=== PATIENT | male | born 1965 | race Caucasian/White ===

== ENCOUNTER 2025-02-26 20:37 | Observation (INO) | payer MEDICARE ==
--- NOTE | 2025-02-26 21:02 | ED ---
Chest Pain HPI - General Chief Complaint: Chest Pain Stated Complaint: Chest pain Time Seen by Provider: 02/26/25 20:38 Source: patient, EMS, RN notes reviewed, old records reviewed Mode of arrival: EMS Limitations: no limitations - History of Present Illness Initial Comments: This is a 59-year-old male to the ER. He comes in today for evaluation of an exacerbation of chronic symptoms vertiginous symptoms with near syncope migraine headaches, patient states that he has a formal diagnosis of migraine induced vertigo but coming in today with chest pain today. Patient states that he does feel like his heart was racing prior to arrival and began to help have chest pain left side of his chest heaviness on his chest which is persistent currently. He does feel short of breath which is improving with no recent recent illness no nausea vomiting or diarrhea no fevers. MD Complaint: chest pain, other (Vertigo dizziness nausea) -: hour(s) Onset: during rest Pain Location: substernal, left chest Pain Radiation: LUE Severity: moderate Severity scale (1-10): 4 Quality: tightness Consistency: constant Improves With: nothing Worsens With: nothing Anginal Symptoms: nausea Other Symptoms: palpitations Treatments Prior to Arrival: none - Related Data Allergies Allergy/AdvReac Type Severity Reaction Status Date / Time No Known Allergies Allergy Verified 02/26/25 20:44 Review of Systems ROS Statement: Those systems with pertinent positive or pertinent negative responses have been documented in the HPI. ROS Other: All systems not noted in ROS Statement are negative. EKG Findings - EKG Comments: EKG Findings:: EKG sinus 62 ID 166 QRS 114 QTc 428, every other beat PVC - EKG Results: EKG: interpreted by ANJEL Past Medical History Past Medical History: Asthma, GERD/Reflux, Hypertension, Mitral Valve Prolapse (MVP) Additional Past Medical History / Comment(s): vestibular headaches History of Any Multi-Drug Resistant Organisms: None Reported Past Surgical History: Orthopedic Surgery Additional Past Surgical History / Comment(s): left knee, bilateral wrist surgery Past Psychological History: Anxiety, Depression Smoking Status: Never smoker Past Alcohol Use History: None Reported Past Drug Use History: None Reported General Exam General appearance: alert, in no apparent distress Head exam: Present: atraumatic, normocephalic, normal inspection Eye exam: Present: normal appearance, PERRL, EOMI. Absent: scleral icterus, conjunctival injection, periorbital swelling ENT exam: Present: normal exam, mucous membranes moist Neck exam: Present: normal inspection. Absent: tenderness, meningismus, lymphadenopathy Respiratory exam: Present: normal lung sounds bilaterally. Absent: respiratory distress, wheezes, rales, rhonchi, stridor Cardiovascular Exam: Present: regular rate, normal rhythm, normal heart sounds. Absent: systolic murmur, diastolic murmur, rubs, gallop, clicks GI/Abdominal exam: Present: soft, normal bowel sounds. Absent: distended, tenderness, guarding, rebound, rigid Extremities exam: Present: normal inspection, full ROM, normal capillary refill. Absent: tenderness, pedal edema, joint swelling, calf tenderness Back exam: Present: normal inspection Neurological exam: Present: alert, oriented X3, CN II-XII intact Psychiatric exam: Present: normal affect, normal mood Skin exam: Present: warm, dry, intact, normal color. Absent: rash Course Vital Signs 02/26/25 20:38 Temperature 98.7 F Pulse Rate 61 Respiratory 18 Rate Blood Pressure 168/101 O2 Sat by Pulse 95 Oximetry - Reevaluation(s) Reevaluation #1: 02/26/25 22:31 Medical records reviewed Reevaluation #2: 02/26/25 22:31 Patient still remains with chest pain here in the ER Reevaluation #3: 02/26/25 22:31 Patient informed of results questions answered Reevaluation #4: Was pt. sent in by a medical professional or institution (, PA, SERVICE UNIT OPERATOR [employer], urgent care, hospital, or senior care...) When possible be specific @ -no Did you speak to anyone other than the patient for history (EMS, parent, family, police, friend...)? What history was obtained from this source @ -no Did you review nursing and triage notes (agree or disagree)? Why? @ -agree Are old charts reviewed (outside hosp., previous admission, EMS record, old EKG, old radiological studies, urgent care reports/EKG's, senior care records)? Report findings @ -yes Differential Diagnosis (chest pain, altered mental status, abdominal pain women, abdominal pain men, vaginal bleeding, weakness, fever, dyspnea, syncope, headache, dizziness, GI bleed, back pain, seizure, CVA, palpatations, mental health, musculoskeletal)? @ -prior EKG interpreted by me (3pts min.). @ -yes X-rays interpreted by me (1pt min.). @ -yes negative for acute disease CT interpreted by me (1pt min.). @ -no U/S interpreted by me (1pt. min.). @ -no What testing was considered but not performed or refused? (CT, X-rays, U/S, labs)? Why? @ -none What meds were considered but not given or refused? Why? @ -none Did you discuss the management of the patient with other professionals (professionals i.e. , PA, SERVICE UNIT OPERATOR [employer], lab, RT, psych nurse, social media specialist, it support engineer, teacher, division officer weapons department, director case)? Give summary @ -no Was smoking cessation discussed for >3mins.? @ -no Was critical care preformed (if so, how long)? @ -no Were there social determinants of health that impacted care today? How? (Homelessness, low income, unemployed, alcoholism, drug addiction, transpo rtation, low edu. Level, literacy, decrease access to med. care, [facility], rehab)? @ -none Was there de-escalation of care discussed even if they declined (Discuss DNR or withdrawal of care, Hospice)? DNR status @ -no What co-morbidities impacted this encounter? (DM, HTN, Smoking, COPD, CAD, Cancer, CVA, ARF, Chemo, Hep., AIDS, mental health diagnosis, sleep apnea, morbid obesity)? @ -none Was patient admitted / discharged? Hospital course, mention meds given and route, prescriptions, significant lab abnormalities, going to OR and other pertinent info. @ - Undiagnosed new problem with uncertain prognosis? @ -no Drug Therapy requiring intensive monitoring for toxicity (Heparin, Nitro, Insulin, Cardizem)? @ -no Were any procedures done? @ -no Diagnosis/symptom? @ - Acute, or Chronic, or Acute on Chronic? @ -Acute Uncomplicated (without systemic symptoms) or Complicated (systemic symptoms)? @ -Complicated Side effects of treatment? @ -no Exacerbation, Progression, or Severe Exacerbation? @ -exacerbation Poses a threat to life or bodily function? How? (Chest pain, USA, NV, pneumonia, PE, COPD, DKA, ARF, appy, cholecystitis, CVA, Diverticulitis, Homicidal, Suicidal, threat to staff... and all critical care pts) @ -yes Reevaluation #5: Differential Chest Pain: Stable Angina, Unstable Angina, STEMI, NSTEMI Aortic Dissection, Pneumothorax, Musculoskeletal, Esophageal Spasm GERD, Cholecystitis, Pancreatitis, Zoster, this is not meant to be an all-inclusive list. Differential Palpitations Ventricular arrhythmias, atrial arrhythmias, myocardial infarction, anemia, thyrotoxicosis, electrolyte imbalance, hypokalemia, pulmonary embolism, pulmonary disease, drugs, alcohol, anxiety, stress.... This is not meant to be an all-inclusive list. - Consultations Consultation #1: Spoke with [facility] who agrees to admit this patient Chest Pain MDM - MDM 59 male to the ER for evaluation of chest pain and palpitations elevated heart rate prior to arrival multiple PVCs here in the ER troponin negative EKG appears unremarkable will admit for chest pain observation as he still is having persistent chest pain and heaviness today Disposition Clinical Impression: Chest pain Disposition: ADMITTED IP TO THIS HOSP Condition: Fair Is patient prescribed a controlled substance at d/c from ED?: No Referrals: Jaime Herrera DO [Primary Care Provider] - 1-2 days Time of Disposition: 22:30
[2025-02-26] MEDS: SODIUM CHLORIDE 0.9% 1,000 ML IV STA (21:13)
[2025-02-26] MEDS: ONDANSETRON 4 MG/2 ML VIAL IVP STA (21:15)
[2025-02-26 21:18] LABS: Basophils # (A) 0.1 k/uL (0-0.2); Basophils % (A) 1 %; Eosinophils # (A) 0.1 k/uL (0-0.7); Eosinophils % (A) 2 %; HCT 48.2 % (39.0-53.0); HGB 15.6 gm/dL (13.0-17.5); Lymphocytes # (A) 1.9 k/uL (1.0-4.8); Lymphocytes % (A) 27 %; MCH 27.3 pg (25.0-35.0); MCHC 32.4 g/dL (31.0-37.0); MCV 84.4 fL (80.0-100.0); Mean Platelet Volume 8.5; Monocytes # (A) 0.5 k/uL (0-1.0); Monocytes % (A) 7 %; Neutrophils # (A) 4.3 k/uL (1.3-7.7); Neutrophils % (A) 61 %; Platelet Count 288 k/uL (150-450); RBC 5.71 m/uL (4.30-5.90); RDW 13.4 % (11.5-15.5)
[2025-02-26 21:28] LABS: ALT 52 U/L (4-49); AST 50 U/L (17-59); African American GFR (CKD) >90 (>60 ml/min/1.73 sqM); Albumin 4.4 g/dL (3.5-5.0); Alkaline Phosphatase 92 U/L (38-126); Anion Gap 9 mmol/L; Blood Urea Nitrogen 18 mg/dL (9-20); Calcium 9.7 mg/dL (8.4-10.2); Carbon Dioxide 22 mmol/L (22-30); Chloride 107 mmol/L (98-107); Glucose 103 mg/dL (74-99); Lipase 61 U/L (23-300); Magnesium 1.9 mg/dL (1.6-2.3); Non-African American GFR(CKD) >90 (>60 ml/min/1.73 sqM); Potassium 3.7 mmol/L (3.5-5.1); Sodium 138 mmol/L (137-145); Total Bilirubin 0.8 mg/dL (0.2-1.3); Total Protein 6.8 g/dL (6.3-8.2)
[2025-02-26 21:29] LABS: Prothrombin Time 11.1 sec (10.0-12.5)
--- NOTE | 2025-02-26 21:29 | XR ---
EXAMINATION TYPE: XR chest 1V portable DATE OF EXAM: 02/26/2025 9:20 PM COMPARISON: None. CLINICAL INDICATION: Male, 59 years old with history of chest pain, TECHNIQUE: XR chest 1V portable view(s) obtained. FINDINGS: The heart size is normal. The pulmonary vasculature is normal. There is a left upper lobe infiltrate. Correlate for pneumonia or atelectasis. This area corresponds approximately 3.7 x 2.5 cm Follow-up to clearing is recommended. IMPRESSION: 1. Small left upper lobe infiltrate. Correlate for atelectasis or pneumonia. Follow-up for underlying mass is recommended. [facility], , 02/26/2025 9:27 PM
[2025-02-26 21:36] LABS: NT-Pro-B-Type Natriuretic Pept 56 pg/mL
[2025-02-26] MEDS ORDERED: NITROGLYCERIN SL TABS 0.4 MG TAB SUBLINGUAL PRN (22:27)
[2025-02-26] MEDS ORDERED: MORPHINE SULFATE 4 MG/ML SYRINGE IV PRN (22:27)
[2025-02-26] MEDS: ASPIRIN 81 MG PO STA (22:51)
[2025-02-26] MEDS ORDERED: NAPROXEN 250 MG TAB PO PRN (23:30)
[2025-02-26] MEDS ORDERED: ACETAMINOPHEN TAB 325 MG TAB PO PRN (23:31)
--- NOTE | 2025-02-26 23:48 | P.HPIM ---
History of Present Illness H&P Date: 02/26/25 Chief Complaint: chest pain Patient is a 59-year-old male with hypertension, asthma presenting with chest pain. Patient has formal diagnosis of migraine induced vertigo follows up with this at [facility]. States this morning he was feeling dizzy and felt his migraine coming on along with light sensitivity. He went to lie down and he started to notice that his heart was racing so much to the point it was causing his chest to hurt. From that point he started to get anxious and stated that he blacked out. After that his family called 911. He describes the pain as a constant chest tightness with no radiation and no alleviating/aggravating factors. Patient said he felt a bit nauseous as well. Denies any vomiting denies or diaphoresis. He is a never smoker, does not drink alcohol, or do any illicit substances. He also states that he quit taking his antihypertensive medication back in October because it made him feel lightheaded. Patient states he is going to follow-up with his PCP regarding new medication. Patient admits to heart palpitations, headache. Patient denies fever, chills, shortness of breath, abdominal pain, vomiting, diarrhea, urinary symptoms. EKG independently interpreted dispelling sinus rhythm, incomplete RBBB, rate 62 bpm, QTc 420 CXR independent interpreted displaying small left upper lobe infiltrate T 98.7 F, HR 61, RR 18, BP 160/101, O2 saturation 95% room air Review of systems: Pertinent positives and negatives as discussed in HPI, a complete review of systems was performed and all other systems are negative. Physical examination: Vital signs reviewed General: non toxic, no distress, appears at stated age, obese Derm: no unusual rashes/lesions, warm Head: atraumatic, normocephalic, symmetric Eyes: EOMI, anicteric sclera, pupils equal round reactive to light ENT: Nose and ears atraumatic Mouth: no lip lesion, mucus membranes moist Cardiovascular: S1S2 reg, no murmur, positive dorsalis pedis pulse bilateral, 1+ pitting edema LLE Lungs: CTA bilateral, no rhonchi, no rales, no accessory muscle use Abdominal: soft, nontender to palpation, no guarding Ext: muscle strength 5 out of 5 in all 4 extremities grossly, no gross muscle atrophy Neuro: CN II-XI grossly intact, no gross focal neuro deficits Psych: Alert, oriented to person, place, and time Assessment/Plan: Patient is a 59-year-old male with hypertension, asthma presenting with chest pain. Discussed with the patient. ED documentation reviewed. The patient is admitted with an anticipated less than 2 midnight stay for evaluation of acute chest pain. #. Acute chest pain Rule out ACS Troponin <0.012, continue to trend proBNP 56 EKG independently interpreted dispelling sinus rhythm, incomplete RBBB, rate 62 bpm, QTc 420 CXR independent interpreted displaying small left upper lobe infiltrate Aspirin 81 mg p.o. daily Atorvastatin 80 mg p.o. daily Lopressor 25 mg p.o. twice daily Sublingual nitroglycerin as needed TSH, A1c, lipid panel ordered Cardiac telemetry Cardiology consulted #. Left lower extremity edema Left lower extremity edema > right side Patient states he has had that for a while, stopped taking his diuretic Bilateral lower extremity Doppler ordered #. History of migraine #. History of vertigo secondary to migraine S/p 5 mg IVP Naproxen 500 mg PO 3 TID #. Obstructive sleep apnea on CPAP Use home CPAP #. History of asthma, not in acute exacerbation Albuterol inhaler as needed DVT prophylaxis: SCDs, patient declined pharmacologic DVT PPX CODE STATUS: Full code Anticipated discharge place: Pending clinical course Avinash Flower MD PGY-1 IM Dictation was produced using [employer] dictation software. please excuse any grammatical, word or spelling errors. I have seen and evaluated the patient today. I Discussed the case with the resident and agree with the resident's findings I edited the assessment and plan as necessary as documented in the resident's note. Past Medical History Past Medical History: Asthma, GERD/Reflux, Hypertension, Mitral Valve Prolapse (MVP) Additional Past Medical History / Comment(s): vestibular headaches History of Any Multi-Drug Resistant Organisms: None Reported Past Surgical History: Orthopedic Surgery Additional Past Surgical History / Comment(s): left knee, bilateral wrist surgery Past Psychological History: Anxiety, Depression Smoking Status: Never smoker Past Alcohol Use History: None Reported Past Drug Use History: None Reported Medications and Allergies Allergies Allergy/AdvReac Type Severity Reaction Status Date / Time heparin AdvReac Unknown Verified 02/26/25 22:58 nortriptyline AdvReac Unknown Verified 02/26/25 22:57 Physical Exam Vitals: Vital Signs Temp Pulse Resp BP Pulse Ox 02/26/25 20:38 98.7 F 61 18 168/101 95 Intake and Output 02/26/25 02/26/25 02/26/25 06:59 14:59 22:59 Other: Weight 120.202 kg Results CBC & Chem 7: 02/26/25 21:08 02/26/25 21:08 Labs: Abnormal Lab Results - Last 24 Hours (Table) 02/26/25 Range/Units 21:08 Glucose 103 H (74-99) mg/dL ALT 52 H (4-49) U/L
[2025-02-26] MEDS ORDERED: ALBUTEROL NEBULIZED 2.5 MG/3 ML INHALATION PRN (23:49)
[2025-02-27 02:41] LABS: Basophils # (A) 0.1 k/uL (0-0.2); Basophils % (A) 1 %; Eosinophils # (A) 0.2 k/uL (0-0.7); Eosinophils % (A) 3 %; HCT 46.7 % (39.0-53.0); HGB 14.9 gm/dL (13.0-17.5); Lymphocytes # (A) 2.3 k/uL (1.0-4.8); Lymphocytes % (A) 32 %; MCH 27.3 pg (25.0-35.0); MCV 85.2 fL (80.0-100.0); Mean Platelet Volume 8.2; Monocytes # (A) 0.6 k/uL (0-1.0); Monocytes % (A) 9 %; Neutrophils # (A) 3.8 k/uL (1.3-7.7); Neutrophils % (A) 53 %; Platelet Count 261 k/uL (150-450); RBC 5.48 m/uL (4.30-5.90); RDW 13.3 % (11.5-15.5); WBC 7.1 k/uL (3.8-10.6)
[2025-02-27 03:06] LABS: ALT 47 U/L (4-49); AST 31 U/L (17-59); African American GFR (CKD) >90 (>60 ml/min/1.73 sqM); Albumin 3.9 g/dL (3.5-5.0); Albumin/Globulin Ratio 1.8; Alkaline Phosphatase 74 U/L (38-126); Anion Gap 7 mmol/L; Blood Urea Nitrogen 19 mg/dL (9-20); Calcium 9.5 mg/dL (8.4-10.2); Carbon Dioxide 24 mmol/L (22-30); Chloride 107 mmol/L (98-107); Globulin 2.2 g/dL; Glucose 93 mg/dL (74-99); Non-African American GFR(CKD) >90 (>60 ml/min/1.73 sqM); Potassium 3.8 mmol/L (3.5-5.1); Sodium 138 mmol/L (137-145); Total Bilirubin 0.8 mg/dL (0.2-1.3); Total Protein 6.1 g/dL (6.3-8.2)
--- NOTE | 2025-02-27 08:08 | US ---
EXAMINATION TYPE: US venous doppler duplex LE BI DATE OF EXAM: 02/27/2025 7:01 AM COMPARISON: NONE CLINICAL INDICATION: Male, 59 years old with history of swelling; , Pain TECHNIQUE: The lower extremity deep venous system is examined utilizing real time linear array sonog mauro with graded compression, color doppler sonography, and spectral doppler. SIDE PERFORMED: Bilateral FINDINGS: VESSELS IMAGED: Common Femoral Vein Deep Femoral Vein Greater Saphenous Vein * Femoral Vein Popliteal Vein Small Saphenous Vein * Proximal Calf Veins (* superficial vessels) Right Leg: Negative for DVT, Color Doppler imaging shows patency of the vessels. Spectral waveforms are within normal limits. Left Leg: Negative for DVT, Color Doppler imaging shows patency of the vessels. Spectral waveforms a re within normal limits. IMPRESSION: 1. Bilateral lower extremity ultrasound negative for deep venous thrombosis. [facility], , 02/27/2025 8:05 AM
[2025-02-27] MEDS ORDERED: ALBUTEROL SULFATE 90 MCG INHALATION PRN (08:55)
[2025-02-27] MEDS ORDERED: diazePAM 2 MG TAB PO PRN (08:55)
[2025-02-27] MEDS ORDERED: ASPIRIN 325 MG TAB PO SCH (09:00)
[2025-02-27] MEDS ORDERED: NON FORMULARY DRUG (Riboflavin (Vitamin B2) [Vitamin B-2] 100 MG Tablet) PO SCH (09:00)
[2025-02-27] MEDS: METOPROLOL TARTRATE 25 MG TAB PO SCH (09:48)
[2025-02-27] MEDS: ASPIRIN 81 MG PO SCH (09:48)
[2025-02-27] MEDS: MONTELUKAST 10 MG TAB PO SCH (09:48)
[2025-02-27] MEDS: ATORVASTATIN 80 MG TAB PO SCH (09:48)
[2025-02-27] MEDS: FAMOTIDINE 20 MG TAB PO SCH (09:48)
[2025-02-27] MEDS: PANTOPRAZOLE 40 MG TABLET PO SCH (09:48)
[2025-02-27] MEDS: FOLIC ACID 1 MG TAB PO SCH (09:49)
[2025-02-27] MEDS ORDERED: SYMBICORT 80-4.5 MCG INHALER INHALATION SCH (10:00)
[2025-02-27 11:47] LABS: Chol/HDL Ratio 4.35 Ratio; LDL Cholesterol,Calculated 141.4 mg/dL (0.0-131.0)
[2025-02-27] MEDS: FLUTICASONE NASAL 50MCG/SPRAY 16GM BTL EA NOSTRIL SCH (12:11)
[2025-02-27] MEDS ORDERED: RX INFO: IV CONTRAST WAS GIVEN 1 EACH MISC MISCELLANE PRN (13:45)
[2025-02-27] MEDS ORDERED: SUMAtriptan succinate 50 MG TAB PO PRN (13:55)
--- NOTE | 2025-02-27 14:00 | P.PN ---
Subjective Progress Note Date: 02/27/25 Hospital course: Patient is a very pleasant 59-year-old male with a past medical history of vestibular migraines with chronic vertigo and gait instability follows at [facility], hypertension, obstructive sleep apnea, and mild persistent asthma. Presented to our facility on with a chief complaint of chest pain. Upon arrival to our facility, patient underwent evaluation in the emergency department. Vital signs upon arrival show blood pressure 168/101, heart rate 61, respiratory rate 18, temp 98.7 F, and SpO2 of 95% on room air. EKG completed showing sinus rhythm at 62 bpm with frequent PVCs and an incomplete right bundle branch block. Chest x-ray completed showing small left upper lobe infiltrate measuring 3.7 x 2.5 cm. Labs completed and reviewed. CBC unremarkable. Coagulation profile normal findings. BMP showing mild hyperglycemia with blood glucose of 103. Liver profile showing elevated ALT of 52 otherwise normal findings. Magnesium normal findings at 1.9. Troponin negative at less than 0.012. proBNP was 56. Patient admitted under our services with consultation to cardiology. Troponins trended overnight all negative at less than 0.012 x 3 draws. Lipid profile showing elevated triglycerides of 175.00, total cholesterol of 229.00, and elevated LDL of 141.4. TSH normal findings at 2.990. Physical exam: Vital signs reviewed and stable. General: Nontoxic, no distress and appears stated age. Derm: Skin warm and dry, normal coloration for ethnicity. Head: Atraumatic, normocephalic and symmetric. Eyes: EOM's intact, no lid lag, and anicteric sclera Mouth: no lip lesions, mucus membranes moist Cardiovascular: regular rate and rhythm with normal S1S2, no murmur, positive posterior tibial pulses bilaterally, and cap refill < 2 seconds. Lungs: Respirations even, regular, and unlabored on room air. Lungs CTA bilaterally, no rhonchi, no rales, no wheezing, and no accessory muscle usage. Abdominal: soft, nontender to palpation, no guarding, no appreciable organomegaly Ext: ROM intact. No gross muscle atrophy, no edema, no contractures Neuro: Speech clear, face symmetrical and CN II-XII grossly intact with no noted focal neuro deficits Psych: Alert and oriented to person, place, time, and situation. Appropriate and pleasant affect. Assessment and Plan of Care: Left-sided chest pain with palpitations, acute coronary event ruled out Left upper lobe infiltrate per chest x-ray findings measuring 3.7 x 2.5 cm Hypertension -Cardiology consulted, discussed plan of care with Dr. Handy. Recommended patient echocardiogram and stress test, patient declined stating he will follow- up outpatient. -Telemetry monitoring -Troponins trended all negative at less than 0.012 x 3 draws. -Aspirin 81 mg daily, atorvastatin 80 mg daily. -Lipid profile showing elevated triglycerides of 175.00, total cholesterol of 229.00, and elevated LDL of 141.4. TSH normal findings at 2.990. -Patient reports he was started on antihypertensive medication by his PCP in October, but stopped taking it because it made him feel lightheaded and worsened his vestibular migraines. Does not want to be started on antihypertensive medication at this time states he will follow-up with his PCP regarding different medication options. -Order placed for CT chest with contrast to rule out left upper lobe mass. Left lower extremity edema -Bilateral lower extremity Dopplers negative for DVT. History of vestibular migraines with chronic vertigo and gait imbalances -Continue Valium 2 mg every 8 hours as needed for headache and naproxen 500 mg 3 times daily as needed. Mild persistent asthma, not in acute exacerbation -Continue Singulair 10 mg daily and supplement albuterol nebulizer for inhaler every 6 hours as needed for shortness of breath and/or wheezing. Obstructive sleep apnea -Continue use of home CPAP nightly and while napping. Data and imaging reviewed: -Labs completed and reviewed. CBC and BMP unremarkable. Magnesium 1.9. Liver profile normal findings. Troponins were trended overnight all negative at less than 0.012 x 3 draws. TSH normal findings at 2.990. Did profile showing elevated triglycerides of 175.00, total cholesterol of 229.00, and LDL of 141.4. -Vital signs reviewed. Blood pressure 163/98, heart rate 61, respiratory rate 15, temp 97.7 F, and SpO2 of 99% on room air. CODE STATUS: Full code DVT prophylaxis: SCDs Discussed with: Patient, RN, and carpenter helper hardwood flooring Anticipated discharge date: Likely in the next [address]: Home Patient was seen independently by Nurse Pracitioner. This document was prepared using [employer] dictation software. Please allow for errors in scrap metal processing worker, while rare they do occur. Reyes Norah, TRAFFIC COUNTER rendered care for this patient independently, reviewed the fin dings and plan as documented in the note above and agree with plan. I did not physically speak with or examine the patient on this date. Objective - Vital Signs Vital signs: Vital Signs Temp 97.7 F 02/27/25 07:00 Pulse 61 02/27/25 07:00 Resp 15 02/27/25 07:00 BP 163/90 02/27/25 07:00 Pulse Ox 99 02/27/25 07:00 FiO2 Intake & Output 02/26/25 02/27/25 02/27/25 18:59 06:59 18:59 Weight 120.202 kg Other: # Voids 2 - Labs CBC & Chem 7: 02/27/25 02:28 02/27/25 02:28 Labs: Abnormal Lab Results - Last 24 Hours (Table) 02/26/25 02/27/25 Range/Units 21:08 02:28 Glucose 103 H (74-99) mg/dL ALT 52 H (4-49) U/L Total Protein 6.1 L (6.3-8.2) g/dL
--- NOTE | 2025-02-27 14:31 | CT ---
EXAMINATION TYPE: CT chest w con DATE OF EXAM: 02/27/2025 2:24 PM COMPARISON: Same-day chest radiograph. CLINICAL INDICATION: Male, 59 years old with history of palpitations, chest pain, rule out lung mass RIO; PHH, Palpitations, chest pain, R/O lung mass RIO TECHNIQUE: Multiple axial images were obtained through the chest. Sagittal and coronal reformats were created for review. MIP was performed on a separate workstation. Contrast used:100 ml mL of Isovue 300 with IV Contrast (None if empty) CT DLP: 697.6 mGycm, Automated exposure control for dose reduction was used. FINDINGS: LUNGS/ PLEURA: The lung parenchyma appears unremarkable. AIRWAY: Patent and unremarkable. HEART: Size within normal limits. MEDIASTINUM: No gross evidence of adenopathy. VASCULATURE: No aortic aneurysm. MUSCULOSKELETAL: No acute osseous abnormalities SOFT TISSUES/LYMPH NODES: Unremarkable. LOWER NECK: No significant findings. UPPER ABDOMEN: No significant acute findings. Hepatic steatosis. IMPRESSION: No acute abnormality in the chest. Specifically, no evidence of a pulmonary mass. The finding describ ed on prior same-day chest radiograph was likely artifactual. [facility], , 02/27/2025 2:29 PM
--- NOTE | 2025-02-27 14:44 | P.DS ---
Providers Date of admission: 02/26/25 22:27 Expected date of discharge: 02/27/25 Attending physician: Tamela Murphy MD Consults: 02/26/25 22:27 Consult Physician Urgent Consulting Provider: Chalino Oliver Consult Reason/Comments: cp Do you want consulting provider notified?: Yes Primary care physician: Jaime Prior Hospital Course: Discharge Diagnosis: Left-sided chest pain with palpitations, acute coronary event ruled out. Left upper lobe infiltrate per chest x-ray findings measuring 3.[address] chest with IV contrast was completed negative for acute process showing no evidence of a pulmonary mass reporting findings described on chest x-ray likely artifactual. Hypertension. Patient reports he was started on antihypertensive medication by his PCP in October, but stopped taking it because it made him feel lightheaded and worsened his vestibular migraines. Does not want to be started on antihypertensive medication at this time states he will follow-up with his PCP regarding different medication options. Left lower extremity edema. Bilateral lower extremity Dopplers negative for DVT. History of vestibular migraines with chronic vertigo and gait imbalances. Continue to follow-up outpatient with Roderick yañez M and continue current home medication regimen with Valium 2 mg every 8 hours as needed for headache and naproxen 500 mg 3 times daily as needed. Mild persistent asthma, not in acute exacerbation. Continue Singulair 10 mg daily and supplement albuterol inhaler every 6 hours as needed for shortness of breath and/or wheezing. Obstructive sleep apnea. Continue use of home CPAP nightly and while napping. Hospital Course: Patient is a very pleasant 59-year-old male with a past medical history of vestibular migraines with chronic vertigo and gait instability follows at [facility], hypertension, obstructive sleep apnea, and mild persistent asthma. Presented to our facility on with a chief complaint of chest pain. Upon arrival to our facility, patient underwent evaluation in the emergency department. Vital signs upon arrival show blood pressure 168/101, heart rate 61, respiratory rate 18, temp 98.7 F, and SpO2 of 95% on room air. EKG completed showing sinus rhythm at 62 bpm with frequent PVCs and an incomplete right bundle branch block. Chest x-ray completed showing small left upper lobe infiltrate measuring 3.7 x 2.5 cm. Labs completed and reviewed. CBC unremarkable. Coagulation profile normal findings. BMP showing mild hyperglycemia with blood glucose of 103. Liver profile showing elevated ALT of 52 otherwise normal findings. Magnesium normal findings at 1.9. Troponin negative at less than 0.012. proBNP was 56. Patient admitted under our services with consultation to cardiology. Troponins trended overnight all negative at less than 0.012 x 3 draws. Lipid profile showing elevated triglycerides of 175.00, total cholesterol of 229.00, and elevated LDL of 141.4. TSH normal findings at 2.990. CT chest with IV contrast was completed negative for acute process showing no evidence of a pulmonary mass reporting findings described on chest x-ray likely artifactual.Cardiology evaluated and recommended echocardiogram and stress test, patient declined stating he will follow-up outpatient. Cardiology clearing patient from cardiac perspective for discharge. Patient currently free from any reports of chest pain, palpitations, shortness of breath, or any other cardiac complaints at this time. He is medically optimized and stable for discharge home. Patient educated on the importance of optimizing control of blood pressures and monitoring blood pressures closely at home. Patient does not want to be started on antihypertensive medication at and he will discuss further with his PCP at follow-up appointment. Physical exam: Vital signs reviewed and stable. General: Nontoxic, no distress and appears stated age. Derm: Skin warm and dry, normal coloration for ethnicity. Head: Atraumatic, normocephalic and symmetric. Eyes: EOM's intact, no lid lag, and anicteric sclera Mouth: no lip lesions, mucus membranes moist Cardiovascular: regular rate and rhythm with normal S1S2, no murmur, positive posterior tibial pulses bilaterally, and cap refill < 2 seconds. Lungs: Respirations even, regular, and unlabored on room air. Lungs CTA bilaterally, no rhonchi, no rales, no wheezing, and no accessory muscle usage. Abdominal: soft, nontender to palpation, no guarding, no appreciable organomegaly Ext: ROM intact. No gross muscle atrophy, no edema, no contractures Neuro: Speech clear, face symmetrical and CN II-XII grossly intact with no noted focal neuro deficits Psych: Alert and oriented to person, place, time, and situation. Appropriate and pleasant affect. A total of 33 minutes of time were spent preparing this complex discharge summary. Pt was discharged on at 2:37 PM. Patient was seen independently by Nurse Practitioner. This document was prepared using [employer] dictation software. Please allow for errors in search optimization analyst while rare they do occur. Reyes Almazan NP rendered care for this patient independently, reviewed the findings and plan as documented in the note above. I did not physically speak with or examine the patient on this date. Patient Condition at Discharge: Stable Plan - Discharge Summary Discharge Rx Participant: No New Discharge Prescriptions: New Atorvastatin [Lipitor] 40 mg PO DAILY 30 Days #30 tablet Continue diazePAM [Valium] 2 mg PO DAILY PRN PRN Reason: Migraine Headache Pantoprazole [Protonix] 40 mg PO DAILY Melatonin 5 mg PO HS Famotidine [Pepcid] 20 mg PO DAILY PRN PRN Reason: Gi Upset Magnesium Glycinate 400 mg PO HS Naproxen [Naprosyn] 500 mg PO BID-W/MEALS PRN PRN Reason: Pain Albuterol Sulfate [Albuterol Sulfate Hfa] 2 puff INHALATION RT-Q6H PRN PRN Reason: Shortness Of Breath Cyanocobalamin (Vitamin B-12) [Vitamin B-12] 1,000 mcg PO DAILY Folic Acid 1 mg PO DAILY Riboflavin (Vitamin B2) [Vitamin B-2] 300 mg PO DAILY Montelukast [Singulair] 10 mg PO DAILY Fluticasone Nasal [place] [Flonase Nasal [place]] 1 - 2 spray EA NOSTRIL DAILY SUMAtriptan succinate [Imitrex] 50 mg PO BID PRN PRN Reason: Migraine Headache Ubidecarenone [Co Q-10] 300 mg PO DAILY [place]-3/Dha/Epa/Fish Oil [Fish Oil 1,000 mg Softgel] 1 cap PO BID Furosemide [Lasix] 20 mg PO DAILY PRN PRN Reason: Edema Cholecalciferol [Vitamin D3 (25 Mcg = 1000 Iu)] 25 mcg PO DAILY Discharge Medication List Albuterol Sulfate [Albuterol Sulfate Hfa] 2 puff INHALATION RT-Q6H PRN 02/27/25 [History] Atorvastatin [Lipitor] 40 mg PO DAILY 30 Days #30 tablet 02/27/25 [Rx] Cholecalciferol [Vitamin D3 (25 Mcg = 1000 Iu)] 25 mcg PO DAILY 02/27/25 [History] Cyanocobalamin (Vitamin B-12) [Vitamin B-12] 1,000 mcg PO DAILY 02/27/25 [History] Famotidine [Pepcid] 20 mg PO DAILY PRN 04/06/25 [History] Fluticasone Nasal [place] [Flonase Nasal [place]] 1 - 2 spray EA NOSTRIL DAILY 02/27/25 [History] Folic Acid 1 mg PO DAILY 02/27/25 [History] Furosemide [Lasix] 20 mg PO DAILY PRN 02/27/25 [History] Magnesium Glycinate 400 mg PO HS 02/27/25 [History] Melatonin 5 mg PO HS 02/27/25 [History] Montelukast [Singulair] 10 mg PO DAILY 02/27/25 [History] Naproxen [Naprosyn] 500 mg PO BID-W/MEALS PRN 02/27/25 [History] [place]-3/Dha/Epa/Fish Oil [Fish Oil 1,000 mg Softgel] 1 cap PO BID 02/27/25 [History] Pantoprazole [Protonix] 40 mg PO DAILY 02/27/25 [History] Riboflavin (Vitamin B2) [Vitamin B-2] 300 mg PO DAILY 02/27/25 [History] SUMAtriptan succinate [Imitrex] 50 mg PO BID PRN 02/27/25 [History] Ubidecarenone [Co Q-10] 300 mg PO DAILY 02/27/25 [History] diazePAM [Valium] 2 mg PO DAILY PRN 02/27/25 [History] Follow up Appointment(s)/Referral(s): Thien Handy MD [Medical Doctor] - 1 Week Prior,DO Jaime [Primary Care Provider] - 1-2 days Patient Instructions/Handouts: Chest Pain (DC) Activity/Diet/Wound Care/Special Instructions: Activity: As tolerated. Take breaks as needed. Diet: Heart healthy and carb consistent diet. Special Instructions: Take all of your medications as directed and remember to keep all of your doctor's appointments and follow-up as needed. Recommend optimizing control of your blood pressure, please discuss further with your PCP regarding alternative antihypertensive medication. Monitor your blood pressures closely at home twice daily and document these findings and a daily log to bring with you to your follow-up appointment with your PCP. Thank you for allowing us to participate in your care, it was truly a pleasure having you for our patient!!! Discharge Disposition: HOME SELF-CARE
--- NOTE | 2025-02-27 17:00 | P.CRDCN ---
History of Present Illness Consult date: 02/27/25 History of present illness: HISTORY OF PRESENTING ILLNESS: 59-year-old with history of hypertension and asthma presented to the hospital because of substernal chest pressure-like symptoms along with lightheadedness dizziness and palpitations. He has been dealing with vertigo and possible Mnire's disease and is getting evaluated by neurologist in [facility]. His primary complaint is palpitation like symptoms. He reports that he was having some upper respiratory congestion for which she has been using pseudoephedrine. He was previously hypertensive and was on losartan hydrochlorothiazide however has stopped taking his medication because of dizzin ess. On admission he was noticed to be hypertensive which is most likely the reason for his symptoms of substernal chest heaviness. Not being on blood pressure medication and use of pseudoephedrine in combination might have caused him to have substernal chest heaviness with palpitation extremities. EKG was nonischemic EKG shows normal sinus rhythm with nonsignificant ST or T wave changes Troponins were negative LDL was elevated at 141, A1c was 5.7, TSH was 2.9, REVIEW OF SYSTEMS: 14 point review of system is negative except what is mentioned above in HPI. PHYSICAL EXAMINATION: Neck: Brisk carotid upstroke, no jugular venous distention. Lungs: Clear to auscultation. Heart: Regular rate and rhythm, S1-S2, , no murmur or rub. Abdomen: Soft nontender, positive bowel sounds. Extremities: No edema, intact distal pulses. Neuro: Alert, oritented, no focal deficits. Detailed neuro exam was not performed. ASSESSMENT: # Atypical chest pain and palpitations likely from uncontrolled blood pressure and pseudoephedrine use. # Essential hypertension, poorly controlled # Dyslipidemia # Obesity # Chronic dizziness, concerns of positive-Mnire's disease PLAN: Patient is very eager to go home. I offered him to perform a stress test and an echocardiogram during the hospital stay however he would like to get them done on outpatient basis. His heart score is low therefore I am comfortable letting him go home with recommended outpatient follow-up. I have added losartan 25 mg daily for blood pressure monitoring Maintain blood pressure log Continue aspirin, Lipitor Thien Handy MD, FACC, RPVI Thank you for allowing [facility] to participate in this patient's care. Feel free to reach out in case of any followup questions. Past Medical History Past Medical History: Asthma, GERD/Reflux, Hypertension, Mitral Valve Prolapse (MVP) Additional Past Medical History / Comment(s): vestibular headaches History of Any Multi-Drug Resistant Organisms: None Reported Past Surgical History: Orthopedic Surgery Additional Past Surgical History / Comment(s): left knee, bilateral wrist surgery Past Psychological History: Anxiety, Depression Smoking Status: Never smoker Past Alcohol Use History: None Reported Past Drug Use History: None Reported Medications and Allergies Home Medications Medication Instructions Recorded Confirmed Type Albuterol Sulfate [Albuterol 2 puff INHALATION RT-Q6H PRN 02/27/25 02/27/25 History Sulfate Hfa] Atorvastatin [Lipitor] 40 mg PO DAILY 30 Days #30 tablet 02/27/25 Rx Cholecalciferol [Vitamin D3 (25 25 mcg PO DAILY 02/27/25 02/27/25 History Mcg = 1000 Iu)] Cyanocobalamin (Vitamin B-12) 1,000 mcg PO DAILY 02/27/25 02/27/25 History [Vitamin B-12] Famotidine [Pepcid] 20 mg PO DAILY PRN 02/27/25 02/27/25 History Fluticasone Nasal [place] [Flonase 1 - 2 spray EA NOSTRIL DAILY 02/27/25 02/27/25 History Nasal [place]] Folic Acid 1 mg PO DAILY 02/27/25 02/27/25 History Furosemide [Lasix] 20 mg PO DAILY PRN 02/27/25 02/27/25 History Magnesium Glycinate 400 mg PO HS 02/27/25 02/27/25 History Melatonin 5 mg PO HS 02/27/25 02/27/25 History Montelukast [Singulair] 10 mg PO DAILY 02/27/25 02/27/25 History Naproxen [Naprosyn] 500 mg PO BID-W/MEALS PRN 02/27/25 02/27/25 History [place]-3/Dha/Epa/Fish Oil [Fish Oil 1 cap PO BID 02/27/25 02/27/25 History 1,000 mg Softgel] Pantoprazole [Protonix] 40 mg PO DAILY 02/27/25 02/27/25 History Riboflavin (Vitamin B2) [Vitamin 300 mg PO DAILY 02/27/25 02/27/25 History B-2] SUMAtriptan succinate [Imitrex] 50 mg PO BID PRN 02/27/25 02/27/25 History Ubidecarenone [Co Q-10] 300 mg PO DAILY 02/27/25 02/27/25 History diazePAM [Valium] 2 mg PO DAILY PRN 02/27/25 02/27/25 History Allergies Allergy/AdvReac Type Severity Reaction Status Date / Time heparin AdvReac Unknown Verified 02/27/25 09:07 nortriptyline AdvReac Unknown Verified 02/27/25 09:07 Physical Exam Vitals: Vital Signs Temp Pulse Pulse Resp BP BP BP 02/27/25 15:00 66 16 115/63 02/27/25 07:00 97.7 F 61 15 163/90 02/27/25 00:47 97.8 F 55 L 18 159/92 02/26/25 23:35 56 L 14 144/93 02/26/25 22:22 61 16 151/95 02/26/25 20:38 98.7 F 61 18 168/101 Pulse Ox 02/27/25 15:00 98 02/27/25 07:00 99 02/27/25 00:47 98 02/26/25 23:35 95 02/26/25 22:22 97 02/26/25 20:38 95 Intake and Output 02/27/25 02/27/25 02/27/25 06:59 14:59 22:59 Intake Total 886 Balance 886 Intake: Oral 886 Other: # Voids 2 3 # Bowel Movements 0 Weight 120.202 kg Results 02/27/25 02:28 02/27/25 02:28 Cardiac Enzymes 02/26/25 02/26/25 02/27/25 Range/Units 21:08 21:08 01:12 AST 50 (17-59) U/L Troponin I <0.012 <0.012 (0.000-0.034) ng/mL 02/27/25 02/27/25 Range/Units 02:28 02:28 AST 31 (17-59) U/L Troponin I <0.012 (0.000-0.034) ng/mL Coagulation 02/26/25 Range/Units 21:08 PT 11.1 (10.0-12.5) sec APTT 25.0 (22.0-30.0) sec Lipids 02/25/25 Range/Units 21:08 Triglycerides 175.00 H (0.00-149.00) mg/dL Cholesterol 229.00 H (0.00-200.00) mg/dL HDL Cholesterol 52.60 (40.00-60.00) mg/dL Cholesterol/HDL Ratio 4.35 Ratio CBC 02/26/25 02/27/25 Range/Units 21:08 02:28 WBC 7.0 7.1 (3.8-10.6) k/uL RBC 5.71 5.48 (4.30-5.90) m/uL Hgb 15.6 14.9 (13.0-17.5) gm/dL Hct 48.2 46.7 (39.0-53.0) % Plt Count 288 261 (150-450) k/uL Comprehensive Metabolic Panel 02/26/25 02/27/25 Range/Units 21:08 02:28 Sodium 138 138 (137-145) mmol/L Potassium 3.7 3.8 (3.5-5.1) mmol/L Chloride 107 107 (98-107) mmol/L Carbon Dioxide 22 24 (22-30) mmol/L BUN 18 19 (9-20) mg/dL Creatinine 0.73 0.84 (0.66-1.25) mg/dL Glucose 103 H 93 (74-99) mg/dL Calcium 9.7 9.5 (8.4-10.2) mg/dL AST 50 31 (17-59) U/L ALT 52 H 47 (4-49) U/L Alkaline Phosphatase 92 74 (38-126) U/L Total Protein 6.8 6.1 L (6.3-8.2) g/dL Albumin 4.4 3.9 (3.5-5.0) g/dL Current Medications Generic Name Dose Route Start Last Admin Trade Name Freq PRN Reason Stop Dose Admin Acetaminophen 650 mg 02/26/25 23:31 Acetaminophen Tab 325 Mg Tab PO Q6HR PRN Fever and/ or Pain Albuterol Sulfate 2.5 mg 02/26/25 23:49 Albuterol Nebulized 2.5 Mg/3 Ml INHALATION RT-QID PRN Shortness Of Breath Or Wheezing Aspirin 81 mg 02/27/25 09:00 02/27/25 09:48 Aspirin 81 Mg PO 81 mg DAILY KENNETH Administration Atorvastatin Calcium 80 mg 02/27/25 09:00 02/27/25 09:48 Atorvastatin 80 Mg Tab PO 80 mg DAILY KENNETH Administration Diazepam 2 mg 02/27/25 08:55 Diazepam 2 Mg Tab PO Q8HR PRN Headache Famotidine 20 mg 02/27/25 09:00 02/27/25 09:48 Famotidine 20 Mg Tab PO 20 mg DAILY KENNETH Administration Fluticasone Propionate 2 spray 02/27/25 09:00 02/27/25 12:11 Fluticasone Nasal 50mcg/[place] 16gm Btl EA NOSTRIL 2 spray DAILY KENNETH Administration Folic Acid 1 mg 02/27/25 09:00 02/27/25 09:49 Folic Acid 1 Mg Tab PO 1 mg DAILY KENNETH Administration Magnesium Oxide 400 mg 02/27/25 21:00 Magnesium Oxide 400 Mg Tab PO HS KENNETH Melatonin 5 mg 02/26/25 23:30 Melatonin 5 Mg Tablet PO HS PRN Insomnia Miscellaneous Information 1 each 02/27/25 13:45 Rx Info: Iv Contrast Was Given 1 Each Misc MISCELLANE 03/01/25 13:46 DAILY PRN Per Protocol Montelukast Sodium 10 mg 02/27/25 09:00 02/27/25 09:48 Montelukast 10 Mg Tab PO 10 mg DAILY KENNETH Administration Naproxen 500 mg 02/26/25 23:30 Naproxen 250 Mg Tab PO TID PRN Breakthrough Pain Nitroglycerin 0.4 mg 02/26/25 22:27 Nitroglycerin Sl Tabs 0.4 Mg Tab SUBLINGUAL Q5M PRN Chest Pain Pantoprazole Sodium 40 mg 02/27/25 09:00 02/27/25 09:48 Pantoprazole 40 Mg Tablet PO 40 mg DAILY KENNETH Administration Sumatriptan Succinate 50 mg 02/27/25 13:55 Sumatriptan Succinate 50 Mg Tab PO BID PRN Migraine Headache Intake and Output 02/27/25 02/27/25 02/27/25 06:59 14:59 22:59 Intake Total 886 Balance 886 Intake: Oral 886 Other: # Voids 2 3 # Bowel Movements 0 Weight 120.202 kg 02/27/25 02:28 02/27/25 02:28
[2025-02-27] MEDS: MELATONIN 5 MG TABLET PO PRN (20:24)
[2025-02-27] MEDS: MAGNESIUM OXIDE 400 MG TAB PO SCH (20:24)
[2025-02-28 08:31] VITALS: RESP 15
--- NOTE | 2025-02-28 10:31 | P.PN ---
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 Patient presented to the hospital. Patient examined this morning at the bedside. Patient states that he feels like his chest is bruised this morning but denies having any pain or pressure. He reports having an episode of dizziness this morning which he states has been chronic and ongoing due to his history of vestibular disease. Patient does follow with a neurologist at the [facility] for this. PHYSICAL EXAM: VITAL SIGNS: Reviewed. GENERAL: Well-developed in no acute distress. NECK: Supple. No JVD or thyromegaly LUNGS: Respirations even and unlabored. Lungs essentially clear to auscultation bilaterally. HEART: Regular rate and rhythm. S1 and S2 heard. EXTREMITIES: Normal range of motion. No clubbing or cyanosis. Peripheral pulses intact. No lower extremity edema ASSESSMENT: Chest pain, troponin negative x 3 Hypertension Hyperlipidemia Obesity: BMI 38.0 Chronic dizziness with history of vestibular disease, follows at [facility] PLAN: Obtain 2D echo to assess cardiac structure and function Patient to undergo stress testing today If negative, patient may be discharged home from a cardiac standpoint Nurse practitioner note has been reviewed by physician. Signing provider agrees with the documented findings, assessment, and plan of care documented by [employer] SPLINE GRINDER as a scribe. Objective - Vital Signs Vital signs: Vital Signs Temp 97.8 F 02/28/25 07:00 Pulse 48 L 02/28/25 08:00 Resp 15 02/28/25 07:00 BP 147/87 02/28/25 07:00 Pulse Ox 97 02/28/25 07:00 FiO2 Intake & Output 02/27/25 02/28/25 02/28/25 18:59 06:59 18:59 Intake Total 886 118 Balance 886 118 Intake: Oral 886 118 Other: # Voids 3 3 # Bowel Movements 0 - Labs CBC & Chem 7: 02/27/25 02:28 02/27/25 02:28 Labs: Abnormal Lab Results - Last 24 Hours (Table) 02/25/25 Range/Units 21:08 Triglycerides 175.00 H (0.00-149.00) mg/dL Cholesterol 229.00 H (0.00-200.00) mg/dL LDL Cholesterol, Calc 141.4 H (0.0-131.0) mg/dL
--- NOTE | 2025-02-28 14:05 | CA ---
Exercise Stress Test Report Name: Rafa You Exam Date: 02/28/2025 12:43 Exam Location: [place] Stress Ht (in): 70 Wt (lb): 265 BSA: 2.35 Ordering Phys: Elizabeth Corbin Referring Phys: RACHEL,, Technologist: MARILYN COHEN Age: 59 Gender: M : 1965 Procedure CPT: Indications: CP ICD-10 Codes: Patient History: CHEST PAIN, PALPITATIONS, NUMBNESS IN FACE/NECK, HTN, FAMILY HX OF HEART DISEASE Medications: SEE CHART,,,,, Meds past 24 hrs: Pretest Chest Pain: STRESS TEST Ravinder Protocol Exercise Duration (min:sec): 09:[address] Depressions (mm): Angina Score: Kellogg Score: Resting HR (bpm): 65 Peak HR (bpm): 151 Resting BP (mmHg): 157 / 98 Peak BP (mmHg): 215 / 92 MPHR: 162 Target HR: 138 % MPHR: 93 METS: 10.9 Total Dose: Peak Dose: Atropine: Double Product: 74550 BP Response: Stress Termination: MAX EXERTION/TARGET HR Stress Symptoms: DIZZY Stress Summary: ECG ANALYSIS Resting ECG: Stress ECG: CONCLUSIONS Normal exercise treadmill stress test Dr. Manish Cole MD (Electronically Signed) Final Date: 28 February 2025 14:04
--- NOTE | 2025-02-28 14:27 | P.DS ---
Providers Date of admission: 02/26/25 22:27 Expected date of discharge: 02/28/25 Attending physician: Tamela Murphy MD Primary care physician: Jaime Herrera Hospital Course: Discharge Diagnosis: Left-sided chest pain with palpitations, acute coronary event ruled out. Left upper lobe infiltrate per chest x-ray findings measuring 3.[address] chest with IV contrast was completed negative for acute process showing no evidence of a pulmonary mass reporting findings described on chest x-ray likely artifactual. Hypertension. Patient reports he was started on antihypertensive medication by his PCP in October, but stopped taking it because it made him feel lightheaded and worsened his vestibular migraines. Does not want to be started on antihypertensive medication at this time states he will follow-up with his PCP regarding different medication options. Left lower extremity edema. Bilateral lower extremity Dopplers negative for DVT. History of vestibular migraines with chronic vertigo and gait imbalances. Continue to follow-up outpatient with [facility] and continue current home medication regimen with Valium 2 mg every 8 hours as needed for headache and naproxen 500 mg 3 times daily as needed. Mild persistent asthma, not in acute exacerbation. Continue Singulair 10 mg daily and supplement albuterol inhaler every 6 hours as needed for shortness of breath and/or wheezing. Obstructive sleep apnea. Continue use of home CPAP nightly and while napping. Hospital Course: Patient is a very pleasant 59-year-old male with a past medical history of vestibular migraines with chronic vertigo and gait instability follows at [facility], hypertension, obstructive sleep apnea, and mild persistent asthma. Presented to our facility on with a chief complaint of chest pain. Upon arrival to our facility, patient underwent evaluation in the emergency department. Vital signs upon arrival show blood pressure 168/101, heart rate 61, respiratory rate 18, temp 98.7 F, and SpO2 of 95% on room air. EKG completed showing sinus rhythm at 62 bpm with frequent PVCs and an incomplete right bundle branch block. Chest x-ray completed showing small left upper lobe infiltrate measuring 3.7 x 2.5 cm. Labs completed and reviewed. CBC unremarkable. Coagulation profile normal findings. BMP showing mild hyperglycemia with blood glucose of 103. Liver profile showing elevated ALT of 52 otherwise normal findings. Magnesium normal findings at 1.9. Troponin negative at less than 0.012. proBNP was 56. Patient admitted under our services with consultation to cardiology. Troponins trended overnight all negative at less than 0.012 x 3 draws. Lipid profile showing elevated triglycerides of 175.00, total cholesterol of 229.00, and elev ated LDL of 141.4. TSH normal findings at 2.990. CT chest with IV contrast was completed negative for acute process showing no evidence of a pulmonary mass reporting findings described on chest x-ray likely artifactual.Cardiology evaluated and recommended echocardiogram and stress test, patient declined stating he will follow-up outpatient. Patient was initially discharged however notified by nursing staff that patient had sinus pause with heart rate dropping into 30s. Discharge was canceled and patient hospitalized again overnight. He was reevaluated by cardiology and an echocardiogram was completed and patient taken for cardiac stress test. Received notification from cardiology SYSTEMS INTEGRATOR that echocardiogram and stress test normal findings. Patient cleared from cardiac perspective for discharge and is medically optimized for discharge home at this time. Physical exam: Vital signs reviewed and stable. General: Nontoxic, no distress and appears stated age. Derm: Skin warm and dry, normal coloration for ethnicity. Head: Atraumatic, normocephalic and symmetric. Eyes: EOM's intact, no lid lag, and anicteric sclera Mouth: no lip lesions, mucus membranes moist Cardiovascular: regular rate and rhythm with normal S1S2, no murmur, positive posterior tibial pulses bilaterally, and cap refill < 2 seconds. Lungs: Respirations even, regular, and unlabored on room air. Lungs CTA bilaterally, no rhonchi, no rales, no wheezing, and no accessory muscle usage. Abdominal: soft, nontender to palpation, no guarding, no appreciable organomegaly Ext: ROM intact. No gross muscle atrophy, no edema, no contractures Neuro: Speech clear, face symmetrical and CN II-XII grossly intact with no noted focal neuro deficits Psych: Alert and oriented to person, place, time, and situation. Appropriate and pleasant affect. A total of 34 minutes of time were spent preparing this complex discharge summary. Pt was discharged on 02/28/2025 at 2:22 PM. Patient was seen independently by Nurse Practitioner. This document was prepared using [employer] dictation software. Please allow for errors in environmental health safety engineer while rare they do occur. Reyes Almazan SYSTEMS INTEGRATOR rendered care for this patient independently, reviewed the findings and plan as documented in the note above. I did not physically speak with or examine the patient on this date. Patient Condition at Discharge: Stable Plan - Discharge Summary Discharge Rx Participant: No New Discharge Prescriptions: New Atorvastatin [Lipitor] 40 mg PO DAILY 30 Days #30 tablet Continue diazePAM [Valium] 2 mg PO DAILY PRN PRN Reason: Migraine Headache Pantoprazole [Protonix] 40 mg PO DAILY Melatonin 5 mg PO HS Famotidine [Pepcid] 20 mg PO DAILY PRN PRN Reason: Gi Upset Magnesium Glycinate 400 mg PO HS Naproxen [Naprosyn] 500 mg PO BID-W/MEALS PRN PRN Reason: Pain Albuterol Sulfate [Albuterol Sulfate Hfa] 2 puff INHALATION RT-Q6H PRN PRN Reason: Shortness Of Breath Cyanocobalamin (Vitamin B-12) [Vitamin B-12] 1,000 mcg PO DAILY Folic Acid 1 mg PO DAILY Riboflavin (Vitamin B2) [Vitamin B-2] 300 mg PO DAILY Montelukast [Singulair] 10 mg PO DAILY Fluticasone Nasal [place] [Flonase Nasal Hughson] 1 - 2 spray EA NOSTRIL DAILY SUMAtriptan succinate [Imitrex] 50 mg PO BID PRN PRN Reason: Migraine Headache Ubidecarenone [Co Q-10] 300 mg PO DAILY [place]-3/Dha/Epa/Fish Oil [Fish Oil 1,000 mg Softgel] 1 cap PO BID Furosemide [Lasix] 20 mg PO DAILY PRN PRN Reason: Edema Cholecalciferol [Vitamin D3 (25 Mcg = 1000 Iu)] 25 mcg PO DAILY Discharge Medication List Albuterol Sulfate [Albuterol Sulfate Hfa] 2 puff INHALATION RT-Q6H PRN 02/27/25 [History] Atorvastatin [Lipitor] 40 mg PO DAILY 30 Days #30 tablet 02/27/25 [Rx] Cholecalciferol [Vitamin D3 (25 Mcg = 1000 Iu)] 25 mcg PO DAILY 02/27/25 [History] Cyanocobalamin (Vitamin B-12) [Vitamin B-12] 1,000 mcg PO DAILY 02/27/25 [History] Famotidine [Pepcid] 20 mg PO DAILY PRN 02/27/25 [History] Fluticasone Nasal [place] [Flonase Nasal [place]] 1 - 2 spray EA NOSTRIL DAILY 02/27/25 [History] Folic Acid 1 mg PO DAILY 02/27/25 [History] Furosemide [Lasix] 20 mg PO DAILY PRN 02/27/25 [History] Magnesium Glycinate 400 mg PO HS 02/27/25 [History] Melatonin 5 mg PO HS 02/27/25 [History] Montelukast [Singulair] 10 mg PO DAILY 02/27/25 [History] Naproxen [Naprosyn] 500 mg PO BID-W/MEALS PRN 02/27/25 [History] [place]-3/Dha/Epa/Fish Oil [Fish Oil 1,000 mg Softgel] 1 cap PO BID 02/27/25 [History] Pantoprazole [Protonix] 40 mg PO DAILY 02/27/25 [History] Riboflavin (Vitamin B2) [Vitamin B-2] 300 mg PO DAILY 02/27/25 [History] SUMAtriptan succinate [Imitrex] 50 mg PO BID PRN 02/27/25 [History] Ubidecarenone [Co Q-10] 300 mg PO DAILY 02/27/25 [History] diazePAM [Valium] 2 mg PO DAILY PRN 02/27/25 [History] Follow up Appointment(s)/Referral(s): Thien Handy MD [Medical Doctor] - 1 Week Prior,DO Jaime [Primary Care Provider] - 1-2 days Patient Instructions/Handouts: Chest Pain (DC) Activity/Diet/Wound Care/Special Instructions: Activity: As tolerated. Take breaks as needed. Diet: Heart healthy and carb consistent diet. Special Instructions: Take all of your medications as directed and remember to keep all of your doctor's appointments and follow-up as needed. Recommend optimizing control of your blood pressure, please discuss further with your PCP regarding alternative antihypertensive medication. Monitor your blood pressures closely at home twice daily and document these findings and a daily log to bring with you to your follow-up appointment with your PCP. Thank you for allowing us to participate in your care, it was truly a pleasure having you for our patient!!! Discharge Disposition: HOME SELF-CARE
[2025-02-28 15:24] VITALS: BP 175/92; PULSE 79; TEMP 98.8
--- NOTE | 2025-03-01 07:17 | CA ---
Transthoracic Echo Report Name: Rafa You Age: 59 Gender: M : 1965 Exam Date: 02/28/2025 10:48 Exam Location: [facility] Ht (in): 70 Wt (lb): 265 Ordering Physician: Elizabeth Corbin Attending/Referring Phys: [id number], Emerald Almond Blancher Operator Brook Polanco, LAZ Procedure CPT: Indications: LV function, chest pain Cardiac Hx: Technical Quality: Fair Contrast 1: Definity Total Dose (mL): 2 Contrast 2: Total Dose (mL): MEASUREMENTS (Male / Female) Normal Values 2D ECHO LV Diastolic Diameter PLAX 5.1 cm 4.2 - 5.9 / 3.9 - 5.3 cm LV Systolic Diameter PLAX 3.3 cm IVS Diastolic Thickness 1.3 cm 0.6 - 1.0 / 0.6 - 0.9 cm LVPW Diastolic Thickness 1.5 cm 0.6 - 1.0 / 0.6 - 0.9 cm LV Relative Wall Thickness 0.6 RV Internal Dim ED PLAX 2.4 cm LA Systolic Diameter LX 4.1 cm 3.0 - 4.0 / 2.7 - 3.8 cm LV Diastolic Volume MOD BP 105.4 cm??? 67 - 155 / 56 - 104 cm??? LV Systolic Volume MOD BP 40.4 cm??? - 58 / 19 - 49 cm??? LV Ejection Fraction MOD BP 61.7 % >= 55 % LV Cardiac Index MOD BP 1960.8 cm???/min???m??? LV Diastolic Volume MOD 4C 103.0 cm??? LV Systolic Volume MOD 4C 39.6 cm??? LV Ejection Fraction MOD 4C 61.6 % LV Cardiac Index MOD 4C 1913.8 cm???/min???m??? LV Diastolic Length 4C 7.8 cm LV Systolic Length 4C 6.1 cm LV Diastolic Volume MOD 2C 107.5 cm??? LV Systolic Volume MOD 2C 40.6 cm??? LV Ejection Fraction MOD 2C 62.3 % LV Cardiac Index MOD 2C 2020.4 cm???/min???m??? LV Diastolic Length 2C 7.8 cm LV Systolic Length 2C 6.3 cm LA Volume 74.6 cm??? 18 - 58 / 22 - 52 cm??? LA Volume Index 30.0 cm???/m??? 16 - 28 cm???/m??? M-MODE Aortic Root Diameter MM 3.3 cm LA Systolic Diameter MM 4.1 cm LA Ao Ratio MM 1.2 AV Cusp Separation MM 1.9 cm DOPPLER MV Area PHT 3.1 cm??? Mitral E Point Velocity 84.3 cm/s Mitral A Point Velocity 67.6 cm/s Mitral E to A Ratio 1.2 MV Deceleration Time 245.9 ms TR Peak Velocity 180.4 cm/s TR Peak Gradient 13.0 mmHg FINDINGS Left Ventricle Mildly impaired LV function with EF at 45% Right Ventricle Mild right ventricular dilatation. Right ventricular systolic pressure within normal limits. Right Atrium Mild right atrial dilatation. Left Atrium Mildly increased left atrial diameter. Mildly increased left atrial volume. Mildly increased left atrial area. Mitral Valve Structurally normal mitral valve. No mitral stenosis. Trace to mild mitral regurgitation. Aortic Valve Trileaflet aortic valve. No aortic valve stenosis or regurgitation. Tricuspid Valve Structurally normal tricuspid valve. No tricuspid stenosis. Trace tricuspid regurgitation. Pulmonic Valve Structurally normal pulmonic valve. Trace pulmonic regurgitation. No pulmonic stenosis. Pericardium No pericardial or pleural effusion. Aorta Normal size aortic root and proximal ascending aorta. CONCLUSIONS Technically difficult study for interpretation Mildly impaired LV function with EF at 45% Poorly visualized intracardiac valves No pericardial effusion Previewed by: Dr. Manish Cole MD (Electronically Signed) Final Date: 01 March 2025 07:16
== END 2025-02-28 16:40 | disposition home or self-care (01) ==
LOC: EC 20:37 → 6NMEDSUR 22:27
PROVIDERS: ADMIT Internal Medicine; ATTEND Internal Medicine
DX: R07.89 Other chest pain (principal); R00.2 Palpitations; R91.8 Other nonspecific abnormal finding of lung field; R60.0 Localized edema; G43.809 Other migraine, not intractable, without status migrainosus; I10 Essential (primary) hypertension; K21.9 Gastro-esophageal reflux disease without esophagitis; E66.9 Obesity, unspecified; F41.9 Anxiety disorder, unspecified; G47.33 Obstructive sleep apnea (adult) (pediatric); J45.30 Mild persistent asthma, uncomplicated; Z68.38 Body mass index [BMI] 38.0-38.9, adult; Z79.899 Other long term (current) drug therapy; Z88.8 Allergy status to other drugs, medicaments and biological substances
CPT/HCPCS: 96361 ×3; 96374; 96375; 99285; 36415; 93005 ×2; 93017; 93306; 83880; 80061; 80053 ×2; 84443; 83690; 83735 ×2; 84484 ×2; 85025 ×2; 85610; 85730; 83036; 71045; 93970; 71260; G0378 ×3; J3360; J2405; Q9957; Q9967